=== PATIENT | female | born 1955 | race Caucasian/White ===

== ENCOUNTER 2016-07-03 17:30 | Inpatient (IN) | payer MEDICARE, OTHER ==
[~2016-07-03] VITALS: Ht 167.6 cm; Wt 78.9 kg
[2016-07-03] MEDS ORDERED: PROP20TA7 PO (17:56)
[2016-07-03] MEDS ORDERED: TEMA30CA PO (17:56)
[2016-07-03] MEDS ORDERED: AMIT50TA3 PO (17:56)
[2016-07-03] MEDS ORDERED: CLON0.5T PO (17:56)
[2016-07-03] MEDS ORDERED: CHOL200026 PO (17:56)
[2016-07-03] MEDS ORDERED: CYAN10009 PO (17:56)
[2016-07-03] MEDS ORDERED: CALC600T12 PO (17:56)
[2016-07-03] MEDS ORDERED: FLUO40CA8 PO (17:56)
[2016-07-03] MEDS ORDERED: GABA600T2 PO (17:56)
[2016-07-03] MEDS ORDERED: ACETAMINOPHEN 325 MG TABLET PO PRN (20:45)
[2016-07-03] MEDS ORDERED: MAG HYDROX/AL HYDROX/SIMETH 30 ML LIQUID UDC PO PRN (20:45)
[2016-07-03] MEDS ORDERED: MAGNESIUM HYDROXIDE 30 ML LIQUID UDC PO PRN (20:45)
[2016-07-03] MEDS ORDERED: TEMAZEPAM 7.5 MG CAPSULE PO PRN (20:45)
[2016-07-03 21:21] VITALS: BP 113/71
[2016-07-03] MEDS ORDERED: TEMAZEPAM 7.5 MG CAPSULE ONE (21:23)
[2016-07-04] MEDS ORDERED: LORAZEPAM 1 MG TABLET ONE (06:42)
[2016-07-04 07:30] VITALS: BP 117/65
[2016-07-04 07:33] LABS: THYROID STIMULATING HORMONE 3.15 mIU/mL (0.358-3.740)
[2016-07-04] MEDS: LORAZEPAM 1 MG TABLET PO PRN (11:39)
[2016-07-04 16:42] VITALS: BP 118/74
[2016-07-04 20:06] VITALS: BP 118/62
[2016-07-04] MEDS ORDERED: CLONAZEPAM 0.5 MG TABLET PO SCH (20:45)
[2016-07-04] MEDS ORDERED: MIRTAZAPINE 15 MG TABLET PO SCH (21:00)
[2016-07-04] MEDS: CARBAMAZEPINE 200 MG TABLET PO SCH (21:02)
[2016-07-04] MEDS: VENLAFAXINE XR 37.5 MG CAP.SR.24H PO SCH (21:02)
[2016-07-05 07:30] VITALS: BP 113/60
[2016-07-05] MEDS: ONDANSETRON ODT 4 MG TAB.RAPDIS SL PRN ×3 (08:43→19:59)
[2016-07-05] MEDS: CARBAMAZEPINE 200 MG TABLET PO SCH ×3 (09:57→17:00)
[2016-07-05] MEDS: CYANOCOBALAMIN 1,000 MCG TABLET PO SCH (09:57)
[2016-07-05] MEDS: CHOLECALCIFEROL 1,000 UNIT TABLET PO SCH (09:57)
[2016-07-05] MEDS: CALCIUM CARBONATE 600 MG TABLET PO SCH (09:57)
[2016-07-05] MEDS: VENLAFAXINE XR 37.5 MG CAP.SR.24H PO SCH ×2 (09:57→21:03)
[2016-07-05 12:00] VITALS: BP 137/91
[2016-07-05] MEDS: PROPRANOLOL HCL 20 MG TABLET PO SCH ×2 (12:03→17:52)
[2016-07-05 16:14] VITALS: BP 127/85
[2016-07-05 20:10] VITALS: BP 109/78
[2016-07-06] MEDS: ONDANSETRON ODT 4 MG TAB.RAPDIS SL PRN (01:08)
[2016-07-06] MEDS: LORAZEPAM 1 MG TABLET PO PRN ×3 (04:33→14:34)
[2016-07-06 07:30] VITALS: BP 127/69
[2016-07-06] MEDS: CALCIUM CARBONATE 600 MG TABLET PO SCH (08:33)
[2016-07-06] MEDS: VENLAFAXINE XR 37.5 MG CAP.SR.24H PO SCH ×2 (08:33→20:17)
[2016-07-06] MEDS: CYANOCOBALAMIN 1,000 MCG TABLET PO SCH (08:33)
[2016-07-06] MEDS: CLONAZEPAM 0.5 MG TABLET PO SCH ×2 (08:33→17:16)
[2016-07-06] MEDS: CHOLECALCIFEROL 1,000 UNIT TABLET PO SCH (08:33)
[2016-07-06] MEDS: PROPRANOLOL HCL 20 MG TABLET PO SCH ×2 (08:34→17:16)
[2016-07-06] MEDS ORDERED: LAMOTRIGINE 25 MG TABLET PO SCH (09:00)
[2016-07-06 16:00] VITALS: BP 131/71
[2016-07-06 19:54] VITALS: BP 122/69
[2016-07-06] MEDS: TOPIRAMATE 25 MG TABLET PO SCH (20:50)
[2016-07-07] MEDS: ONDANSETRON ODT 4 MG TAB.RAPDIS SL PRN ×3 (02:22→17:40)
[2016-07-07] MEDS: LORAZEPAM 1 MG TABLET PO PRN ×2 (03:45→13:58)
[2016-07-07 07:30] VITALS: BP 108/57
[2016-07-07] MEDS: CALCIUM CARBONATE 600 MG TABLET PO SCH (08:47)
[2016-07-07] MEDS: VENLAFAXINE XR 37.5 MG CAP.SR.24H PO SCH ×2 (08:48→20:52)
[2016-07-07] MEDS: CHOLECALCIFEROL 1,000 UNIT TABLET PO SCH (08:48)
[2016-07-07] MEDS: CLONAZEPAM 0.5 MG TABLET PO SCH ×2 (08:48→17:40)
[2016-07-07] MEDS: CYANOCOBALAMIN 1,000 MCG TABLET PO SCH (08:48)
[2016-07-07] MEDS: TOPIRAMATE 25 MG TABLET PO SCH ×2 (08:48→20:52)
[2016-07-07] MEDS: PROPRANOLOL HCL 20 MG TABLET PO SCH ×2 (10:39→17:40)
[2016-07-07 15:12] VITALS: BP 103/56
[2016-07-07 22:24] VITALS: BP 104/52
[2016-07-08] MEDS: LORAZEPAM 1 MG TABLET PO PRN (02:16)
[2016-07-08 07:30] VITALS: BP 121/60
[2016-07-08] MEDS: TOPIRAMATE 25 MG TABLET PO SCH ×2 (08:36→20:01)
[2016-07-08] MEDS: CALCIUM CARBONATE 600 MG TABLET PO SCH (08:37)
[2016-07-08] MEDS: CYANOCOBALAMIN 1,000 MCG TABLET PO SCH (08:37)
[2016-07-08] MEDS: CHOLECALCIFEROL 1,000 UNIT TABLET PO SCH (08:37)
[2016-07-08] MEDS: VENLAFAXINE XR 37.5 MG CAP.SR.24H PO SCH ×2 (08:37→20:01)
[2016-07-08] MEDS: CLONAZEPAM 0.5 MG TABLET PO SCH ×2 (08:37→17:01)
[2016-07-08] MEDS: PROPRANOLOL HCL 20 MG TABLET PO SCH ×2 (08:38→17:00)
[2016-07-08] MEDS: ONDANSETRON ODT 4 MG TAB.RAPDIS SL PRN (14:19)
[2016-07-08 15:53] VITALS: BP 99/64
[2016-07-08 20:00] VITALS: BP 106/64
[2016-07-09] MEDS: LORAZEPAM 1 MG TABLET PO PRN ×2 (02:53→14:17)
[2016-07-09 07:30] VITALS: BP 116/76
[2016-07-09] MEDS: CLONAZEPAM 0.5 MG TABLET PO SCH ×2 (08:35→17:18)
[2016-07-09] MEDS: CALCIUM CARBONATE 600 MG TABLET PO SCH (08:35)
[2016-07-09] MEDS: TOPIRAMATE 25 MG TABLET PO SCH ×2 (08:35→20:19)
[2016-07-09] MEDS: CHOLECALCIFEROL 1,000 UNIT TABLET PO SCH (08:35)
[2016-07-09] MEDS: CYANOCOBALAMIN 1,000 MCG TABLET PO SCH (08:35)
[2016-07-09] MEDS: VENLAFAXINE XR 37.5 MG CAP.SR.24H PO SCH ×2 (08:35→20:19)
[2016-07-09] MEDS: PROPRANOLOL HCL 20 MG TABLET PO SCH ×2 (08:36→17:00)
[2016-07-09] MEDS: ONDANSETRON ODT 4 MG TAB.RAPDIS SL PRN (11:00)
[2016-07-09 15:42] VITALS: BP 102/56
[2016-07-09 20:00] VITALS: BP 108/66
[2016-07-10] MEDS: LORAZEPAM 1 MG TABLET PO PRN ×2 (03:44→23:25)
[2016-07-10 07:30] VITALS: BP 112/68
[2016-07-10] MEDS: CYANOCOBALAMIN 1,000 MCG TABLET PO SCH (08:51)
[2016-07-10] MEDS: CALCIUM CARBONATE 600 MG TABLET PO SCH (08:51)
[2016-07-10] MEDS: CHOLECALCIFEROL 1,000 UNIT TABLET PO SCH (08:51)
[2016-07-10] MEDS: TOPIRAMATE 25 MG TABLET PO SCH ×2 (08:51→20:12)
[2016-07-10] MEDS: CLONAZEPAM 0.5 MG TABLET PO SCH ×2 (08:52→17:38)
[2016-07-10] MEDS: VENLAFAXINE XR 37.5 MG CAP.SR.24H PO SCH ×2 (08:52→20:12)
[2016-07-10] MEDS: PROPRANOLOL HCL 20 MG TABLET PO SCH ×2 (08:52→17:38)
[2016-07-10] MEDS: ONDANSETRON ODT 4 MG TAB.RAPDIS SL PRN (13:15)
[2016-07-10 16:34] VITALS: BP 112/76
[2016-07-10 20:14] VITALS: BP 103/67
[2016-07-11] MEDS: LORAZEPAM 1 MG TABLET PO PRN ×2 (05:37→14:29)
[2016-07-11 07:30] VITALS: BP 111/77
[2016-07-11] MEDS: CYANOCOBALAMIN 1,000 MCG TABLET PO SCH (08:26)
[2016-07-11] MEDS: VENLAFAXINE XR 37.5 MG CAP.SR.24H PO SCH (08:26)
[2016-07-11] MEDS: TOPIRAMATE 25 MG TABLET PO SCH (08:26)
[2016-07-11] MEDS: CLONAZEPAM 0.5 MG TABLET PO SCH ×2 (08:26→17:56)
[2016-07-11] MEDS: CHOLECALCIFEROL 1,000 UNIT TABLET PO SCH (08:26)
[2016-07-11] MEDS: CALCIUM CARBONATE 600 MG TABLET PO SCH (08:26)
[2016-07-11] MEDS: PROPRANOLOL HCL 20 MG TABLET PO SCH ×2 (08:27→17:58)
[2016-07-11 15:15] VITALS: BP 118/66
[2016-07-11 17:58] VITALS: BP 118/66
== END 2016-07-11 19:00 | disposition home or self-care (01) | DRG 885 ==
LOC: ER 17:34 → GPS 20:05
PROVIDERS: ADMIT Psychiatry & Neurology Psychiatry; ATTEND Internal Medicine
DX: F31.9 Bipolar disorder, unspecified (principal); R45.851 Suicidal ideations; F41.0 Panic disorder [episodic paroxysmal anxiety]; E78.5 Hyperlipidemia, unspecified; I10 Essential (primary) hypertension; Z79.899 Other long term (current) drug therapy; Z91.5 Personal history of self-harm; G89.29 Other chronic pain; F41.9 Anxiety disorder, unspecified; J44.9 Chronic obstructive pulmonary disease, unspecified
CPT/HCPCS: 36415; 71010; 84443; 93005; A4663; Q0162